=== PATIENT | male | born 1960 | race Caucasian/White ===

== ENCOUNTER 2021-02-25 16:24 | Emergency (ER) | payer BC, SELFPAY ==
[2021-02-25 16:32] VITALS: BP 126/75; PULSE 79; RESP 16; TEMP 36.8; O2SAT 97
--- NOTE | 2021-02-25 16:58 | ED.SKABFB ---
HPI - Skin/Abscess/Foreign Bdy General Chief complaint: Skin/Abscess/Foreign Body Stated complaint: rash Time Seen by Provider: 02/25/21 16:59 Source: patient, RN notes reviewed and old records reviewed Mode of arrival: ambulatory Limitations: no limitations History of Present Illness HPI narrative: 60-year-old male who presents to [facility] with complaints of a rash which has been ongoing for the past 2 weeks. HE STATES THAT HE WENT TO ANOTHER URGENT CARE AND THEY GAVE HIM PREDNISONE AND AN ANTIBIOTIC FOR POISON DOLORES AND CELLULITIS WITH NO RESOLUTION OF HIS RASH. HE REPORTS THAT HE WENT BACK TO THE SAME URGENT CARE AND THEY TOLD HIM IT WAS SCABIES AND THEY GAVE HIM PERMETHRIN WHICH HE APPLIED AND SLEPT IN IT AND THEN SHOWERED WITH NO IMPROVEMENT. PATIENT HAS RED EXCORIATED ARMS SOME AREAS ON HIS LOWER BACK AND TORSO HAS AREA ON HIS RIGHT WRIST WHICH IS INFLAMED WITH SCABBING, NO DRAINAGE NOTED. HE HAS APPLIED CALAMINE OINTMENT TO FOREARMS FOR THE ITCHING. 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 MD complaint: rash Related Data Allergies Allergy/AdvReac Type Severity Reaction Status Date / Time No Known Allergies Allergy Verified 02/25/21 16:44 Review of Systems Review of Systems: CONSTITUTIONAL: Denies fever, chills, or sweats. EYES: Denies visual changes, redness, or discharge. ENT: Denies rhinorrhea, congestion, sore throat, or otalgia. CARDIOVASCULAR: Denies chest pain, palpitations, or edema. RESPIRATORY: Denies cough or dyspnea. GASTROINTESTINAL: Denies abdominal pain, nausea, vomiting, or diarrhea. GENITOURINARY: Denies dysuria or hematuria. SKIN: POSITIVE FOR rash or itching ON BILATERAL ARMS TORSO AND LOWER BACK WITH SEVERE ITCHING MUSCULOSKELETAL: Denies back pain, joint pain, or myalgia. NEUROLOGIC: Denies headache, numbness, or weakness. PSYCHIATRIC:POSITIVE FOR HISTORY OF anxiety or depression. All systems reviewed & are unremarkable except as noted in HPI and below PMFSH Past Medical History Medical History Anxiety and depression Family History Family History Other No significant family history Social History Social History (Updated 02/26/21 @ 10:26 by Thu Carroll NP) Smoking status: Unknown if ever smoked Additional smoking assessment comments: states does not smoke Alcohol intake: unknown Substance use: unknown Living arrangements: with family Gender identity (if verbalized by the patient): Male Comments At time of signature, agree with nursing past medical, surgical, social and family history. There is no relevant family history pertinent to the presenting complaint Exam Narrative: GENERAL: Well-appearing, well-nourished, and in mild acute distress. HEAD: Normocephalic, atraumatic. EYES: PERRLA and EOMI. ENT: Nares clear, no rhinorrhea or epistaxis. Mucous membranes moist.TM's normal with good light reflex, throat pink with no lesions or exudates, no tonsil enlargement. NECK: Supple.NO LYMPHADENOPATHY CHEST: Clear to auscultation. No respiratory distress. NELLY 2 97% ON ROOM AIR HEART: Regular rate and rhythm. No murmur heard. Normal peripheral pulses. ABDOMEN: Soft, nontender, nondistended, normal active bowel sounds. EXTREMITIES: Normal range of motion. No edema. SKIN: Warm, dry, ACUTE RASH TO BILATERAL FOREARMS WITH AREA OF SCABBING AND REDNESS TO RIGHT WRIST REGION, RASH ALSO NOTED TO TORSO AND LOWER BACK SEVERE ITCHING WITH SOME PAIN VOICED TO FOREARM RASH AREAS. NO RASH NOTED ON HANDS NO LINEAR FORMATION OF RASH. NEURO: No focal deficits. Alert and oriented x3. Course Vital Signs Vital signs: Vital Signs Temperature 36.8 C 02/25/21 16:32 Pulse Rate 79 02/25/21 16:32 Respiratory Rate 16 02/25/21 16:32 Blood Pressure 126/75 02/25/21 16:32 Pulse Oximet
== END 2021-02-25 17:32 | disposition home or self-care (01) ==
PROVIDERS: Emergency Provider Registered Nurse
DX: L03.113 Cellulitis of right upper limb (principal); L25.9 Unspecified contact dermatitis, unspecified cause
CPT/HCPCS: 99213; G0463

== ENCOUNTER 2021-12-04 11:46 | Outpatient (CLI) | payer OTHER, SELFPAY ==
--- NOTE | ~2021-12-04 | XR_ITS ---
EXAMINATION: XR lumbar spine 2-3V DATE: 12/04/2021 12:08 INDICATION: Chronic low back pain. Sciatica. TECHNIQUE: 3 views of lumbar spine were obtained. COMPARISON: None. FINDINGS: There is 4 degrees dextrocurvature of thoracolumbar spine. Vertebral body heights are whitney l. There is moderately decreased disc height at L1-L2 and moderately decreased disc height at L5-S1. There are endplate osteophytes at all levels. There is multilevel facet joint osteoarthritis, moderat e to severe at multiple levels. IMPRESSION: 1. Moderate lumbar spondylosis. Reviewed, dictated and finalized at location A.
== END 2021-12-04 11:47 | disposition home or self-care (01) ==
PROVIDERS: PCP Internal Medicine; Visit Provider Internal Medicine
DX: M54.40 Lumbago with sciatica, unspecified side (principal); G89.29 Other chronic pain; M47.896 Other spondylosis, lumbar region
CPT/HCPCS: 72100